=== PATIENT | male | born 1980 | race Caucasian/White ===

== ENCOUNTER → 2016-11-23 | Outpatient (REF) | payer OTHER ==
[~2016-11-23] MED LIST: BENZ5TA PO; COGE1INJ OR; DEPA500T2 PO; HALD100I2 IM; HALO5TA PO; NO HOME MEDS
== END ==
LOC: M SFHCPLAZ 10:56
PROVIDERS: ATTEND Family Medicine
DX: R63.5 Abnormal weight gain (principal)

== ENCOUNTER → 2017-03-15 | Outpatient (REF) | payer OTHER | LOC: M SFHCPLAZ 15:03 | DX: Z13.220 Encounter for screening for lipoid disorders (principal); Z13.1 Encounter for screening for diabetes mellitus; Z13.21 Encounter for screening for nutritional disorder ==

== ENCOUNTER → 2017-04-16 | Outpatient (REF) | payer MEDICAID ==
[2017-04-16 12:20] LABS: ALBUMIN 3.7 GM/DL (3.2-5.2); ALBUMIN/GLOBULIN RATIO 1.12 (1.00-1.93); ALKALINE PHOSPHATASE 71 U/L (45-117); ALT/SGPT 59 U/L (12-78); ANION GAP 10 MEQ/L (8-16); AST/SGOT 22 U/L (15-37); BILIRUBIN,TOTAL 0.5 MG/DL (0.2-1.0); BLOOD UREA NITROGEN 12 MG/DL (7-18); CARBON DIOXIDE LEVEL 25 MEQ/L (21-32); CHLORIDE LEVEL 106 MEQ/L (98-107); CHOLESTEROL LEVEL 229 MG/DL (<200); CREATININE FOR GFR 1.09 MG/DL (0.70-1.30); GLOMERULAR FILTRATION RATE > 60.0 (>60); GLUCOSE, FASTING 97 MG/DL (70-105); SODIUM LEVEL 141 MEQ/L (136-145); TRIGLYCERIDES LEVEL 185 MG/DL (<150)
== END ==
LOC: M SFHCPLAZ 09:39
DX: Z13.220 Encounter for screening for lipoid disorders (principal); Z13.1 Encounter for screening for diabetes mellitus; Z13.21 Encounter for screening for nutritional disorder

== ENCOUNTER → 2017-10-17 | Outpatient (REF) | payer OTHER ==
[~2017-10-17] MED LIST changes: +BENZ0.5T PO; -BENZ5TA PO
[2017-10-17 16:00] LABS: ALBUMIN 3.9 GM/DL (3.2-5.2); ALBUMIN/GLOBULIN RATIO 1.08 (1.00-1.93); ALKALINE PHOSPHATASE 84 U/L (45-117); ALT/SGPT 71 U/L (12-78); ANION GAP 12 MEQ/L (8-16); AST/SGOT 26 U/L (7-37); BILIRUBIN,TOTAL 0.3 MG/DL (0.2-1.0); BLOOD UREA NITROGEN 10 MG/DL (7-18); CALCIUM LEVEL 8.8 MG/DL (8.5-10.1); CARBON DIOXIDE LEVEL 22 MEQ/L (21-32); CHLORIDE LEVEL 109 MEQ/L (98-107); CHOLESTEROL LEVEL 249 MG/DL (<200); CREATININE FOR GFR 1.23 MG/DL (0.70-1.30); GLOMERULAR FILTRATION RATE > 60.0 (>60); GLUCOSE, FASTING 117 MG/DL (70-105); POTASSIUM SERUM 4.3 MEQ/L (3.5-5.1); SODIUM LEVEL 143 MEQ/L (136-145); TOTAL PROTEIN 7.5 GM/DL (6.4-8.2); TRIGLYCERIDES LEVEL 171 MG/DL (<150)
== END ==
LOC: M SFHCPLAZ 09:13
DX: Z13.220 Encounter for screening for lipoid disorders (principal); Z13.1 Encounter for screening for diabetes mellitus; Z13.21 Encounter for screening for nutritional disorder

== ENCOUNTER 2022-06-07 01:34 | Inpatient (IN) | payer MEDICAID, OTHER ==
[~2022-06-07] VITALS: Ht 172.7 cm; Wt 72.9 kg
[~2022-06-07 01:34] MED LIST changes: -BENZ0.5T PO; +BENZ0.5T23 PO; -HALO5TA PO; +HALO5TAB33 PO
[2022-06-07 02:08] LABS: HEMATOCRIT 44.5 % (42.0-52.0); HEMOGLOBIN 15.3 g/dl (13.5-17.5); MEAN CORPUSCULAR HEMOGLOBIN 33.3 pg (27.0-33.0); MEAN CORPUSCULAR HGB CONC 34.4 g/dl (32.0-36.5); MEAN CORPUSCULAR VOLUME 96.7 fl (80.0-96.0); PLATELET COUNT, AUTOMATED 239 10^3/uL (150-450)
[2022-06-07 02:49] LABS: RSV AMPLIFICATION NEGATIVE (NEGATIVE)
[2022-06-07 02:55] LABS: ACETAMINOPHEN LEVEL < 2.0 UG/ML (10.0-30.0); ALBUMIN 3.8 GM/DL (3.2-5.2); ALT/SGPT 48 U/L (12-78); BILIRUBIN,DIRECT < 0.1 MG/DL (0.0-0.2); BILIRUBIN,TOTAL 0.2 MG/DL (0.2-1.0); BLOOD UREA NITROGEN 22 MG/DL (7-18); CALCIUM LEVEL 9.2 MG/DL (8.5-10.1); CARBON DIOXIDE LEVEL 30 MEQ/L (21-32); CHLORIDE LEVEL 103 MEQ/L (98-107); CREATININE FOR GFR 0.99 MG/DL (0.70-1.30); ETHYL ALCOHOL (ETHANOL) < 0.003 % (0.000-0.010); GLOMERULAR FILTRATION RATE > 60.0 (>60); GLUCOSE, FASTING 111 MG/DL (70-100); POTASSIUM SERUM 4.3 MEQ/L (3.5-5.1); SALICYLATE LEVEL < 1.7 MG/DL (5.0-30.0); SODIUM LEVEL 138 MEQ/L (136-145); TOTAL PROTEIN 7.3 GM/DL (6.4-8.2)
[2022-06-07 04:50] LABS: AMPHETAMINES LEVEL URINE NEGATIVE (NEGATIVE); BARBITURATES URINE NEGATIVE (NEGATIVE); BENZODIAZEPINES URINE NEGATIVE (NEGATIVE); CANNABINOIDS URINE NEGATIVE (NEGATIVE); COCAINE METABOLITE URINE NEGATIVE (NEGATIVE); METHADONE URINE NEGATIVE (NEGATIVE); OPIATES URINE NEGATIVE (NEGATIVE); PHENCYCLIDINE URINE NEGATIVE (NEGATIVE)
[2022-06-07] MEDS ORDERED: HOME MED LIST COMPLETE! XX SCH (06:10)
[2022-06-08] MEDS: NICOTINE 21MG/24HR 1 EA TRANSDERMAL TD SCH (09:00)
[2022-06-08] MEDS ORDERED: LORazepam 2 MG TAB PO STA (10:06)
[2022-06-08] MEDS ORDERED: OLANZapine ORAL DISINTEGRATING TAB 5MG PO ONE (10:10)
[2022-06-08] MEDS ORDERED: MAALOX 30 ML SUSP *UDC PO PRN (13:50)
[2022-06-08] MEDS ORDERED: MOM 30ML SUSPENSION UDC PO PRN (13:50)
[2022-06-08 14:46] VITALS: BP 118/78
[2022-06-09 06:36] VITALS: BP 113/73
[2022-06-09] MEDS: NICOTINE 21MG/24HR 1 EA TRANSDERMAL TD SCH (09:00)
[2022-06-09] MEDS ORDERED: diphenhydrAMINE 50MG/ML VIAL (J1200) IM STA (09:15)
[2022-06-09] MEDS ORDERED: LORazepam 2 MG/ML VIAL IM STA (09:15)
[2022-06-09] MEDS ORDERED: HALOPERIDOL 5MG/ML VIAL (J1630 PER 1) IM STA (09:15)
[2022-06-09 17:04] VITALS: BP 147/71
[2022-06-09] MEDS: PALIPERIDONE 3 MG ER TAB (INVEGA) PO SCH (21:00)
[2022-06-10] VITALS (7 sets, daily range): BP systolic 115–135; BP diastolic 71–82
[2022-06-10] MEDS: NICOTINE 21MG/24HR 1 EA TRANSDERMAL TD SCH (09:00)
[2022-06-10] MEDS ORDERED: diphenhydrAMINE 50MG/ML VIAL (J1200) IM STA (11:20)
[2022-06-10] MEDS ORDERED: HALOPERIDOL 5MG/ML VIAL (J1630 PER 1) IM STA (11:20)
[2022-06-10] MEDS ORDERED: LORazepam 2 MG/ML VIAL IM STA (11:20)
[2022-06-10] MEDS: PALIPERIDONE 3 MG ER TAB (INVEGA) PO SCH (20:58)
[2022-06-11 06:36] VITALS: BP 127/71
[2022-06-11] MEDS: NICOTINE 21MG/24HR 1 EA TRANSDERMAL TD SCH (09:00)
[2022-06-11 18:26] VITALS: BP 124/83
[2022-06-11] MEDS: PALIPERIDONE 3 MG ER TAB (INVEGA) PO SCH (20:07)
[2022-06-12] MEDS: diphenhydrAMINE 25MG CAP PO PRN (00:51)
[2022-06-12] MEDS: LORazepam 1 MG TAB PO PRN (00:51)
[2022-06-12] MEDS: NICOTINE 21MG/24HR 1 EA TRANSDERMAL TD SCH (09:00)
[2022-06-12 18:19] VITALS: BP 138/78
[2022-06-12] MEDS: PALIPERIDONE 3 MG ER TAB (INVEGA) PO SCH (20:50)
[2022-06-13] MEDS: NICOTINE 21MG/24HR 1 EA TRANSDERMAL TD SCH (08:55)
[2022-06-13 18:33] VITALS: BP 122/74
[2022-06-13] MEDS: PALIPERIDONE 3 MG ER TAB (INVEGA) PO SCH (21:00)
[2022-06-14 07:09] VITALS: BP 111/66
[2022-06-14] MEDS: NICOTINE 21MG/24HR 1 EA TRANSDERMAL TD SCH (09:00)
[2022-06-14 18:00] VITALS: BP 136/90
[2022-06-14] MEDS: PALIPERIDONE 3 MG ER TAB (INVEGA) PO SCH (21:00)
[2022-06-15] MEDS: NICOTINE 21MG/24HR 1 EA TRANSDERMAL TD SCH (09:00)
[2022-06-15 18:20] VITALS: BP 137/74
[2022-06-15] MEDS: PALIPERIDONE 3 MG ER TAB (INVEGA) PO SCH (21:00)
[2022-06-16 07:02] VITALS: BP 133/76
[2022-06-16] MEDS: NICOTINE 21MG/24HR 1 EA TRANSDERMAL TD SCH (08:26)
[2022-06-16] MEDS: LORazepam 1 MG TAB PO PRN (14:25)
[2022-06-16] MEDS: diphenhydrAMINE 25MG CAP PO PRN (14:25)
[2022-06-16 18:26] VITALS: BP 145/93
[2022-06-16] MEDS: PALIPERIDONE 3 MG ER TAB (INVEGA) PO SCH (20:45)
[2022-06-17 06:57] VITALS: BP 130/71
[2022-06-17] MEDS: NICOTINE 21MG/24HR 1 EA TRANSDERMAL TD SCH (07:31)
[2022-06-17 18:19] VITALS: BP 150/86
[2022-06-17] MEDS: PALIPERIDONE 3 MG ER TAB (INVEGA) PO SCH (20:49)
[2022-06-18 06:33] VITALS: BP 138/79
[2022-06-18] MEDS: NICOTINE 21MG/24HR 1 EA TRANSDERMAL TD SCH (09:00)
[2022-06-18] MEDS: PALIPERIDONE 3 MG ER TAB (INVEGA) PO SCH (20:49)
[2022-06-19 06:23] VITALS: BP 112/78
[2022-06-19] MEDS: NICOTINE 21MG/24HR 1 EA TRANSDERMAL TD SCH (09:00)
[2022-06-19 16:54] VITALS: BP 153/77
[2022-06-19] MEDS: PALIPERIDONE 3 MG ER TAB (INVEGA) PO SCH (21:00)
[2022-06-20 06:29] VITALS: BP 104/58
[2022-06-20] MEDS ORDERED: NICOTINE 21MG/24HR 1 EA TRANSDERMAL TD PRN (09:00)
[2022-06-20] MEDS: NICOTINE 21MG/24HR 1 EA TRANSDERMAL TD SCH (09:00)
[2022-06-20] MEDS: diphenhydrAMINE 25MG CAP PO PRN (14:53)
[2022-06-20] MEDS: LORazepam 1 MG TAB PO PRN (14:53)
[2022-06-20 16:52] VITALS: BP 125/73
[2022-06-20] MEDS: PALIPERIDONE 3 MG ER TAB (INVEGA) PO SCH ×3 (20:33→21:45)
[2022-06-21 06:52] VITALS: BP 126/76
[2022-06-21] MEDS: PALIPERIDONE 3 MG ER TAB (INVEGA) PO SCH ×2 (08:33→20:14)
[2022-06-21] MEDS: DIVALPROEX 250 MG TAB PO SCH ×2 (08:34→20:14)
[2022-06-21 18:39] VITALS: BP 108/70
[2022-06-22 07:01] VITALS: BP 129/82
[2022-06-22] MEDS: DIVALPROEX 250 MG TAB PO SCH ×3 (09:00→19:56)
[2022-06-22] MEDS: PALIPERIDONE 3 MG ER TAB (INVEGA) PO SCH ×3 (09:00→19:56)
[2022-06-22 16:18] VITALS: BP 128/69
[2022-06-23 06:31] VITALS: BP 130/78
[2022-06-23] MEDS: DIVALPROEX 250 MG TAB PO SCH ×2 (08:42→19:59)
[2022-06-23] MEDS: PALIPERIDONE 3 MG ER TAB (INVEGA) PO SCH ×2 (08:42→19:58)
[2022-06-23 16:47] VITALS: BP 114/60
[2022-06-24 06:22] VITALS: BP 117/82
[2022-06-24] MEDS: DIVALPROEX 250 MG TAB PO SCH ×2 (08:53→20:14)
[2022-06-24] MEDS: PALIPERIDONE 3 MG ER TAB (INVEGA) PO SCH ×2 (08:53→20:14)
[2022-06-24 17:16] VITALS: BP 138/81
[2022-06-25 06:30] VITALS: BP 120/75
[2022-06-25] MEDS: DIVALPROEX 250 MG TAB PO SCH ×2 (08:26→20:28)
[2022-06-25] MEDS: PALIPERIDONE 3 MG ER TAB (INVEGA) PO SCH ×2 (08:26→20:27)
[2022-06-25] MEDS: IBUPROFEN 400MG TAB PO PRN (17:27)
[2022-06-25 18:42] VITALS: BP 113/77
[2022-06-26 06:43] VITALS: BP 113/73
[2022-06-26] MEDS: PALIPERIDONE 3 MG ER TAB (INVEGA) PO SCH ×2 (08:11→20:15)
[2022-06-26] MEDS: DIVALPROEX 250 MG TAB PO SCH (08:11)
[2022-06-26 18:27] VITALS: BP 122/72
[2022-06-26] MEDS ORDERED: DIVALPROEX 500 MG TAB PO SCH (21:00)
[2022-06-27 06:44] VITALS: BP 121/71
[2022-06-27] MEDS: PALIPERIDONE 3 MG ER TAB (INVEGA) PO SCH ×2 (08:38→20:25)
[2022-06-27] MEDS ORDERED: DIVALPROEX 250 MG TAB PO SCH (09:00)
[2022-06-27 18:00] VITALS: BP 109/56
[2022-06-27] MEDS: IBUPROFEN 400MG TAB PO PRN (20:24)
[2022-06-27] MEDS: DIVALPROEX 500 MG TAB PO SCH (20:25)
[2022-06-27] MEDS: traZODone 50 MG TAB PO PRN (20:25)
[2022-06-28] MEDS: IBUPROFEN 400MG TAB PO PRN ×2 (04:38→16:14)
[2022-06-28 06:52] VITALS: BP 127/67
[2022-06-28] MEDS: PALIPERIDONE 3 MG ER TAB (INVEGA) PO SCH ×2 (08:25→20:11)
[2022-06-28] MEDS: DIVALPROEX 500 MG TAB PO SCH ×2 (08:25→20:11)
[2022-06-28 18:39] VITALS: BP 119/59
[2022-06-28] MEDS: traZODone 50 MG TAB PO PRN (20:11)
[2022-06-29] MEDS: IBUPROFEN 400MG TAB PO PRN ×2 (00:48→19:28)
[2022-06-29 06:30] VITALS: BP 111/66
[2022-06-29] MEDS: DIVALPROEX 500 MG TAB PO SCH ×2 (08:17→21:28)
[2022-06-29] MEDS: PALIPERIDONE 3 MG ER TAB (INVEGA) PO SCH ×2 (08:17→21:27)
[2022-06-29 19:14] VITALS: BP 140/74
[2022-06-29] MEDS: traZODone 50 MG TAB PO PRN (21:27)
[2022-06-30] MEDS: IBUPROFEN 400MG TAB PO PRN ×3 (05:00→22:47)
[2022-06-30 06:41] VITALS: BP 107/58
[2022-06-30] MEDS: PALIPERIDONE 3 MG ER TAB (INVEGA) PO SCH ×2 (08:28→20:15)
[2022-06-30] MEDS: DIVALPROEX 500 MG TAB PO SCH ×2 (08:28→20:16)
[2022-06-30] MEDS: traZODone 50 MG TAB PO PRN (20:15)
[2022-07-01] MEDS: IBUPROFEN 400MG TAB PO PRN ×2 (05:06→14:47)
[2022-07-01 06:29] VITALS: BP 117/56
[2022-07-01] MEDS: PALIPERIDONE 3 MG ER TAB (INVEGA) PO SCH ×2 (08:04→20:33)
[2022-07-01] MEDS: DIVALPROEX 500 MG TAB PO SCH ×2 (08:04→20:33)
[2022-07-01 20:00] VITALS: BP 148/67
[2022-07-01] MEDS: traZODone 50 MG TAB PO PRN (20:33)
[2022-07-02] MEDS: IBUPROFEN 400MG TAB PO PRN ×3 (06:20→23:10)
[2022-07-02 06:30] VITALS: BP 132/70
[2022-07-02] MEDS: DIVALPROEX 500 MG TAB PO SCH ×2 (08:38→20:09)
[2022-07-02] MEDS: PALIPERIDONE 3 MG ER TAB (INVEGA) PO SCH ×2 (08:38→20:09)
[2022-07-02 17:02] VITALS: BP 121/61
[2022-07-02] MEDS: traZODone 50 MG TAB PO PRN (20:09)
[2022-07-03 06:14] VITALS: BP 114/70
[2022-07-03] MEDS: DIVALPROEX 500 MG TAB PO SCH ×2 (08:28→21:10)
[2022-07-03] MEDS: PALIPERIDONE 3 MG ER TAB (INVEGA) PO SCH ×2 (08:28→21:10)
[2022-07-03] MEDS: IBUPROFEN 400MG TAB PO PRN (09:15)
[2022-07-03 17:06] VITALS: BP 120/69
[2022-07-04 07:40] VITALS: BP 129/77
[2022-07-04] MEDS: PALIPERIDONE 6 MG ER TAB (INVEGA) PO SCH (08:28)
[2022-07-04] MEDS: DIVALPROEX 500 MG TAB PO SCH ×2 (08:29→20:14)
[2022-07-04 16:44] VITALS: BP 113/58
[2022-07-04] MEDS: traZODone 50 MG TAB PO PRN (20:14)
[2022-07-04] MEDS: PALIPERIDONE 3 MG ER TAB (INVEGA) PO SCH (20:14)
[2022-07-05 07:14] VITALS: BP 116/71
[2022-07-05] MEDS: DIVALPROEX 500 MG TAB PO SCH ×2 (08:44→20:40)
[2022-07-05] MEDS: PALIPERIDONE 6 MG ER TAB (INVEGA) PO SCH (08:44)
[2022-07-05 18:32] VITALS: BP 119/67
[2022-07-05] MEDS: PALIPERIDONE 3 MG ER TAB (INVEGA) PO SCH (20:40)
[2022-07-06 06:39] VITALS: BP 123/69
[2022-07-06] MEDS: DIVALPROEX 500 MG TAB PO SCH ×2 (08:24→20:20)
[2022-07-06] MEDS: PALIPERIDONE 6 MG ER TAB (INVEGA) PO SCH (09:00)
[2022-07-06 16:34] VITALS: BP 112/65
[2022-07-06] MEDS: PALIPERIDONE 3 MG ER TAB (INVEGA) PO SCH (20:20)
[2022-07-06] MEDS: traZODone 50 MG TAB PO PRN (20:20)
[2022-07-07] MEDS: DIVALPROEX 500 MG TAB PO SCH ×2 (08:34→20:14)
[2022-07-07] MEDS: PALIPERIDONE 6 MG ER TAB (INVEGA) PO SCH (08:34)
[2022-07-07 16:22] VITALS: BP 111/60
[2022-07-07] MEDS: traZODone 50 MG TAB PO PRN (20:13)
[2022-07-07] MEDS: PALIPERIDONE 3 MG ER TAB (INVEGA) PO SCH (20:13)
[2022-07-08] MEDS: PALIPERIDONE 6 MG ER TAB (INVEGA) PO SCH (08:23)
[2022-07-08] MEDS: DIVALPROEX 500 MG TAB PO SCH ×2 (08:23→20:58)
[2022-07-08 16:24] VITALS: BP 126/69
[2022-07-08] MEDS: traZODone 50 MG TAB PO PRN (20:58)
[2022-07-08] MEDS: PALIPERIDONE 3 MG ER TAB (INVEGA) PO SCH (20:58)
[2022-07-09 06:11] VITALS: BP 105/56
[2022-07-09] MEDS: PALIPERIDONE 6 MG ER TAB (INVEGA) PO SCH (08:49)
[2022-07-09] MEDS: DIVALPROEX 500 MG TAB PO SCH ×2 (08:49→20:50)
[2022-07-09 18:28] VITALS: BP 134/66
[2022-07-09] MEDS: PALIPERIDONE 3 MG ER TAB (INVEGA) PO SCH (20:50)
[2022-07-10 06:20] VITALS: BP 96/76
[2022-07-10] MEDS: DIVALPROEX 500 MG TAB PO SCH ×2 (08:17→20:19)
[2022-07-10] MEDS: PALIPERIDONE 6 MG ER TAB (INVEGA) PO SCH (08:17)
[2022-07-10 17:54] VITALS: BP 125/76
[2022-07-10] MEDS: PALIPERIDONE 3 MG ER TAB (INVEGA) PO SCH (20:20)
[2022-07-10] MEDS: traZODone 50 MG TAB PO PRN (20:20)
[2022-07-11 06:16] VITALS: BP 118/65
[2022-07-11] MEDS: PALIPERIDONE 6 MG ER TAB (INVEGA) PO SCH (09:00)
[2022-07-11] MEDS: DIVALPROEX 500 MG TAB PO SCH ×2 (10:06→20:12)
[2022-07-11 19:27] VITALS: BP 127/61
[2022-07-11] MEDS: PALIPERIDONE 3 MG ER TAB (INVEGA) PO SCH (20:11)
[2022-07-11] MEDS: traZODone 50 MG TAB PO PRN (20:11)
[2022-07-12 06:44] VITALS: BP 110/61
[2022-07-12] MEDS: PALIPERIDONE 6 MG ER TAB (INVEGA) PO SCH ×2 (08:16→08:37)
[2022-07-12] MEDS: DIVALPROEX 500 MG TAB PO SCH ×2 (08:17→20:29)
[2022-07-12 18:06] VITALS: BP 125/63
[2022-07-12] MEDS: PALIPERIDONE 3 MG ER TAB (INVEGA) PO SCH (20:29)
[2022-07-12] MEDS: traZODone 50 MG TAB PO PRN (20:29)
[2022-07-13] MEDS: DIVALPROEX 500 MG TAB PO SCH ×2 (08:48→20:07)
[2022-07-13] MEDS: PALIPERIDONE 6 MG ER TAB (INVEGA) PO SCH (09:00)
[2022-07-13 16:30] VITALS: BP 134/62
[2022-07-13] MEDS: traZODone 50 MG TAB PO PRN (20:07)
[2022-07-13] MEDS: PALIPERIDONE 3 MG ER TAB (INVEGA) PO SCH (20:07)
[2022-07-14 07:11] VITALS: BP 111/65
[2022-07-14] MEDS: DIVALPROEX 500 MG TAB PO SCH ×2 (08:32→20:24)
[2022-07-14] MEDS: PALIPERIDONE 3 MG ER TAB (INVEGA) PO SCH ×2 (08:33→20:24)
[2022-07-14 18:30] VITALS: BP 123/58
[2022-07-14] MEDS: traZODone 50 MG TAB PO PRN (20:23)
[2022-07-15 06:34] VITALS: BP 123/70
[2022-07-15] MEDS: PALIPERIDONE 3 MG ER TAB (INVEGA) PO SCH ×2 (08:02→20:56)
[2022-07-15] MEDS: DIVALPROEX 500 MG TAB PO SCH ×2 (08:03→20:56)
[2022-07-15 17:52] VITALS: BP 108/58
[2022-07-16 08:20] VITALS: BP 118/68
[2022-07-16 08:40] VITALS: BP 118/68
[2022-07-16] MEDS: DIVALPROEX 500 MG TAB PO SCH ×2 (08:58→20:20)
[2022-07-16] MEDS: PALIPERIDONE 3 MG ER TAB (INVEGA) PO SCH ×2 (08:58→20:20)
[2022-07-16 16:00] VITALS: BP 113/68
[2022-07-16] MEDS: traZODone 50 MG TAB PO PRN (20:20)
[2022-07-17 06:30] VITALS: BP 111/59
[2022-07-17] MEDS: DIVALPROEX 500 MG TAB PO SCH ×2 (08:21→20:10)
[2022-07-17] MEDS: PALIPERIDONE 3 MG ER TAB (INVEGA) PO SCH ×2 (08:21→20:10)
[2022-07-17 16:22] VITALS: BP 135/73
[2022-07-17] MEDS: traZODone 50 MG TAB PO PRN (20:10)
[2022-07-18 06:37] VITALS: BP 131/74
[2022-07-18] MEDS: DIVALPROEX 500 MG TAB PO SCH ×2 (08:05→20:18)
[2022-07-18] MEDS: PALIPERIDONE 3 MG ER TAB (INVEGA) PO SCH ×2 (08:05→20:17)
[2022-07-18 15:44] VITALS: BP 127/65
[2022-07-18] MEDS: traZODone 50 MG TAB PO PRN (20:17)
[2022-07-19 06:22] VITALS: BP 117/76
[2022-07-19] MEDS: PALIPERIDONE 3 MG ER TAB (INVEGA) PO SCH ×2 (08:10→20:23)
[2022-07-19] MEDS: DIVALPROEX 500 MG TAB PO SCH (08:11)
[2022-07-19 18:22] VITALS: BP 116/66
[2022-07-19] MEDS: traZODone 50 MG TAB PO PRN (20:20)
[2022-07-19] MEDS: DIVALPROEX 250 MG TAB PO SCH (20:21)
[2022-07-20 06:47] VITALS: BP 123/66
[2022-07-20] MEDS: DIVALPROEX 500 MG TAB PO SCH (08:26)
[2022-07-20] MEDS: PALIPERIDONE 3 MG ER TAB (INVEGA) PO SCH ×2 (08:26→20:03)
[2022-07-20 16:12] VITALS: BP 114/57
[2022-07-20] MEDS: traZODone 50 MG TAB PO PRN (20:03)
[2022-07-20] MEDS: DIVALPROEX 250 MG TAB PO SCH (20:03)
[2022-07-21 06:12] VITALS: BP 113/58
[2022-07-21] MEDS: DIVALPROEX 500 MG TAB PO SCH (08:23)
[2022-07-21] MEDS: PALIPERIDONE 3 MG ER TAB (INVEGA) PO SCH ×2 (08:24→20:11)
[2022-07-21 16:05] VITALS: BP 108/56
[2022-07-21] MEDS: DIVALPROEX 250 MG TAB PO SCH (20:11)
[2022-07-22 06:39] VITALS: BP 109/65
[2022-07-22] MEDS: DIVALPROEX 500 MG TAB PO SCH (08:09)
[2022-07-22] MEDS: PALIPERIDONE 3 MG ER TAB (INVEGA) PO SCH ×2 (08:09→20:32)
[2022-07-22 08:21] LABS: CHOLESTEROL RISK RATIO 4.063 (<5)
[2022-07-22 16:10] VITALS: BP 126/66
[2022-07-22] MEDS: DIVALPROEX 250 MG TAB PO SCH (20:32)
[2022-07-22] MEDS: traZODone 50 MG TAB PO PRN (20:32)
[2022-07-23 06:14] VITALS: BP 124/63
[2022-07-23] MEDS: PALIPERIDONE 3 MG ER TAB (INVEGA) PO SCH ×2 (08:25→20:39)
[2022-07-23] MEDS: DIVALPROEX 500 MG TAB PO SCH (08:25)
[2022-07-23 17:26] VITALS: BP 106/59
[2022-07-23] MEDS: DIVALPROEX 250 MG TAB PO SCH (20:39)
[2022-07-23] MEDS: traZODone 50 MG TAB PO PRN (20:39)
[2022-07-24 06:51] VITALS: BP 106/69
[2022-07-24] MEDS: PALIPERIDONE 3 MG ER TAB (INVEGA) PO SCH (08:08)
[2022-07-24] MEDS: DIVALPROEX 500 MG TAB PO SCH (08:10)
[2022-07-24] MEDS ORDERED: DEPA250T32 PO (08:37)
[2022-07-24] MEDS ORDERED: PALI1TAB2 PO ×2 (08:37)
[2022-07-24] MEDS ORDERED: TRAZ-252 PO (08:37)
[2022-07-24] MEDS ORDERED: DEPA1TAB3 PO (08:37)
== END 2022-07-24 12:40 | disposition home or self-care (01) | DRG 753 ==
LOC: M ED 01:34 → M ED INP 06-08 13:50 → M PSY 06-08 14:41
PROVIDERS: ADMIT Student in an Organized Health Care Education/Training Program; ATTEND Psychiatry & Neurology Psychiatry
DX: F31.2 Bipolar disorder, current episode manic severe with psychotic features (principal); Z78.1 Physical restraint status; F12.90 Cannabis use, unspecified, uncomplicated

== ENCOUNTER 2022-11-18 09:49 | Inpatient (IN) | payer MEDICAID ==
[~2022-11-18] VITALS: Ht 177.8 cm; Wt 76.0 kg
[~2022-11-18 09:49] MED LIST changes: +DEPA1TAB3 PO; +DEPA250T32 PO; +PALI1TAB2 PO; +TRAZ-252 PO
[2022-11-18] MEDS ORDERED: LORazepam 2 MG/ML VIAL IM STA ×2 (10:50→13:03)
[2022-11-18] MEDS ORDERED: LIDOCAINE 2% 5ML JELLY UROJET TOP ONE (10:50)
[2022-11-18] MEDS ORDERED: OLANZapine INTRAMUSCULAR 10MG VIAL IM ONE ×2 (10:50→13:05)
[2022-11-18 12:13] LABS: HEMATOCRIT 44.5 % (42.0-52.0); MEAN CORPUSCULAR HEMOGLOBIN 31.4 pg (27.0-33.0); MEAN CORPUSCULAR HGB CONC 33.7 g/dl (32.0-36.5); MEAN CORPUSCULAR VOLUME 93.1 fl (80.0-96.0); PLATELET COUNT, AUTOMATED 240 10^3/uL (150-450); RED BLOOD COUNT 4.78 10^6/uL (4.30-6.10); WHITE BLOOD COUNT 5.6 10^3/uL (4.0-10.0)
[2022-11-18] MEDS ORDERED: PALI1TAB2 PO (12:27)
[2022-11-18] MEDS ORDERED: TRAZ-186 PO (12:27)
[2022-11-18] MEDS ORDERED: PALI1TAB4 PO (12:27)
[2022-11-18] MEDS ORDERED: DEPA1TAB3 PO (12:27)
[2022-11-18] MEDS ORDERED: DEPA250T32 PO (12:27)
[2022-11-18] MEDS ORDERED: COMMENTS (12:28)
[2022-11-18] MEDS ORDERED: HOME MED LIST COMPLETE! XX SCH (12:35)
[2022-11-18 12:37] LABS: ETHYL ALCOHOL (ETHANOL) 0.003 % (0.000-0.010)
[2022-11-18 12:38] LABS: ACETAMINOPHEN LEVEL < 2.0 UG/ML (10.0-20.0); BILIRUBIN,DIRECT < 0.1 MG/DL (<0.4); SALICYLATE LEVEL < 3.0 MG/DL (<30)
[2022-11-18 12:39] LABS: ALBUMIN 3.5 G/DL (3.2-5.2); ALKALINE PHOSPHATASE 65 U/L (46-116); ALT/SGPT 31 U/L (7.0-40); AST/SGOT 23 U/L (<34); BILIRUBIN,TOTAL 0.2 MG/DL (0.3-1.2); BLOOD UREA NITROGEN 16 MG/DL (9-23); CALCIUM LEVEL 8.4 MG/DL (8.5-10.1); CARBON DIOXIDE LEVEL 25 MMOL/L (20-31); CHLORIDE LEVEL 108 MMOL/L (98-107); CREATININE FOR GFR 0.91 MG/DL (0.70-1.30); GLOMERULAR FILTRATION RATE > 60.0 (>60); GLUCOSE, FASTING 95 MG/DL (60-100); POTASSIUM SERUM 4.1 MMOL/L (3.5-5.1); SODIUM LEVEL 142 MMOL/L (136-145); TOTAL PROTEIN 6.2 G/DL (5.7-8.2)
[2022-11-18 12:41] LABS: THYROID STIMULATING HORMONE 0.436 uIU/ML (0.55-4.78)
[2022-11-18 12:47] LABS: RSV AMPLIFICATION NEGATIVE (NEGATIVE)
[2022-11-18 16:09] LABS: AMPHETAMINES LEVEL URINE NEGATIVE (NEGATIVE); BARBITURATES URINE NEGATIVE (NEGATIVE); BENZODIAZEPINES URINE NEGATIVE (NEGATIVE)
[2022-11-18 16:10] LABS: CANNABINOIDS URINE NEGATIVE (NEGATIVE); COCAINE METABOLITE URINE NEGATIVE (NEGATIVE); METHADONE URINE NEGATIVE (NEGATIVE); OPIATES URINE NEGATIVE (NEGATIVE); PHENCYCLIDINE URINE NEGATIVE (NEGATIVE)
[2022-11-19 08:49] LABS: VALPROIC ACID (DEPAKOTE) < 3.0 UG/ML (50.0-100.0)
[2022-11-19] MEDS: PALIPERIDONE 3MG ER TAB (INVEGA) PO SCH (09:00)
[2022-11-19] MEDS: DIVALPROEX 500 MG TAB PO SCH (10:53)
[2022-11-19] MEDS: traZODone 50 MG TAB PO SCH (20:49)
[2022-11-19] MEDS: DIVALPROEX 250MG TAB PO SCH (20:50)
[2022-11-20] MEDS: PALIPERIDONE 3MG ER TAB (INVEGA) PO SCH (08:59)
[2022-11-20] MEDS: DIVALPROEX 500 MG TAB PO SCH (08:59)
[2022-11-20] MEDS: traZODone 50 MG TAB PO SCH (21:27)
[2022-11-20] MEDS: DIVALPROEX 250MG TAB PO SCH (21:27)
[2022-11-21] MEDS: NICOTINE 21MG/24HR 1 EA TRANSDERMAL TD SCH (09:00)
[2022-11-21] MEDS: PALIPERIDONE 3MG ER TAB (INVEGA) PO SCH ×2 (10:36→21:42)
[2022-11-21] MEDS: DIVALPROEX 500 MG TAB PO SCH (10:36)
[2022-11-21] MEDS ORDERED: MAALOX 30 ML SUSP *UDC PO PRN (12:30)
[2022-11-21] MEDS ORDERED: diphenhydrAMINE 25MG CAP PO PRN (12:30)
[2022-11-21] MEDS ORDERED: IBUPROFEN 400MG TAB PO PRN (12:30)
[2022-11-21] MEDS ORDERED: traZODone 50 MG TAB PO PRN (12:30)
[2022-11-21] MEDS ORDERED: MOM 30ML SUSPENSION UDC PO PRN (12:30)
[2022-11-21] MEDS ORDERED: OLANZapine ORAL DISINTEGRATING TAB 5MG PO PRN (12:30)
[2022-11-21 21:35] VITALS: BP 126/76
[2022-11-21] MEDS: DIVALPROEX 250MG TAB PO SCH (21:42)
[2022-11-21] MEDS: traZODone 50 MG TAB PO SCH (21:42)
[2022-11-22 06:38] VITALS: BP 116/63
[2022-11-22] MEDS: DIVALPROEX 500 MG TAB PO SCH (08:56)
[2022-11-22] MEDS: NICOTINE 21MG/24HR 1 EA TRANSDERMAL TD SCH (08:56)
[2022-11-22] MEDS ORDERED: PALIPERIDONE 3MG ER TAB (INVEGA) PO SCH (09:00)
[2022-11-22 18:21] VITALS: BP 144/66
[2022-11-22] MEDS: PALIPERIDONE 3MG ER TAB (INVEGA) PO SCH (21:11)
[2022-11-22] MEDS: DIVALPROEX 250MG TAB PO SCH (21:11)
[2022-11-22] MEDS: traZODone 50 MG TAB PO SCH (21:11)
[2022-11-23 06:04] VITALS: BP 123/64
[2022-11-23] MEDS: NICOTINE 21MG/24HR 1 EA TRANSDERMAL TD SCH (08:50)
[2022-11-23] MEDS: DIVALPROEX 500 MG TAB PO SCH (08:51)
[2022-11-23 16:33] VITALS: BP 126/67
[2022-11-23] MEDS: DIVALPROEX 250MG TAB PO SCH (21:04)
[2022-11-23] MEDS: PALIPERIDONE 3MG ER TAB (INVEGA) PO SCH (21:04)
[2022-11-23] MEDS: traZODone 50 MG TAB PO SCH (21:05)
[2022-11-24 06:52] VITALS: BP 131/76
[2022-11-24] MEDS: DIVALPROEX 500 MG TAB PO SCH (08:15)
[2022-11-24] MEDS: NICOTINE 21MG/24HR 1 EA TRANSDERMAL TD SCH (08:15)
[2022-11-24 16:43] VITALS: BP 132/70
[2022-11-24] MEDS: PALIPERIDONE 3MG ER TAB (INVEGA) PO SCH (20:03)
[2022-11-24] MEDS: DIVALPROEX 250MG TAB PO SCH (20:03)
[2022-11-24] MEDS: traZODone 50 MG TAB PO SCH (20:04)
[2022-11-25 06:53] VITALS: BP 100/60
[2022-11-25] MEDS: DIVALPROEX 500 MG TAB PO SCH (08:10)
[2022-11-25] MEDS: NICOTINE 21MG/24HR 1 EA TRANSDERMAL TD SCH (08:11)
[2022-11-25 16:33] VITALS: BP 126/61
[2022-11-25] MEDS: DIVALPROEX 250MG TAB PO SCH (20:25)
[2022-11-25] MEDS: PALIPERIDONE 3MG ER TAB (INVEGA) PO SCH (20:25)
[2022-11-25] MEDS: traZODone 50 MG TAB PO SCH (20:25)
[2022-11-26 06:00] VITALS: BP 112/55
[2022-11-26] MEDS: DIVALPROEX 500 MG TAB PO SCH (08:08)
[2022-11-26] MEDS: NICOTINE 21MG/24HR 1 EA TRANSDERMAL TD SCH (08:09)
[2022-11-26 19:27] VITALS: BP 147/75
[2022-11-26] MEDS: PALIPERIDONE 3MG ER TAB (INVEGA) PO SCH (20:20)
[2022-11-26] MEDS: traZODone 50 MG TAB PO SCH (20:20)
[2022-11-26] MEDS: DIVALPROEX 250MG TAB PO SCH (20:21)
[2022-11-27 06:04] VITALS: BP 137/57
[2022-11-27] MEDS: NICOTINE 21MG/24HR 1 EA TRANSDERMAL TD SCH (08:12)
[2022-11-27] MEDS: DIVALPROEX 500 MG TAB PO SCH (08:13)
[2022-11-27 18:42] VITALS: BP 138/89
[2022-11-27] MEDS: traZODone 50 MG TAB PO SCH (20:21)
[2022-11-27] MEDS: DIVALPROEX 250MG TAB PO SCH (20:21)
[2022-11-27] MEDS: PALIPERIDONE 3MG ER TAB (INVEGA) PO SCH (20:22)
[2022-11-28 06:48] VITALS: BP 140/65
[2022-11-28] MEDS: NICOTINE 21MG/24HR 1 EA TRANSDERMAL TD SCH (08:16)
[2022-11-28] MEDS: DIVALPROEX 250MG TAB PO SCH ×2 (08:19→20:36)
[2022-11-28 19:10] VITALS: BP 126/79
[2022-11-28] MEDS: traZODone 50 MG TAB PO SCH (20:36)
[2022-11-28] MEDS: PALIPERIDONE 3MG ER TAB (INVEGA) PO SCH (20:36)
[2022-11-29 06:48] VITALS: BP 122/60
[2022-11-29] MEDS: NICOTINE 21MG/24HR 1 EA TRANSDERMAL TD SCH (08:04)
[2022-11-29] MEDS: DIVALPROEX 250MG TAB PO SCH ×2 (08:05→20:23)
[2022-11-29 19:12] VITALS: BP 135/81
[2022-11-29] MEDS: traZODone 50 MG TAB PO SCH (20:22)
[2022-11-29] MEDS: PALIPERIDONE 3MG ER TAB (INVEGA) PO SCH (20:22)
[2022-11-30 06:58] VITALS: BP 120/69
[2022-11-30] MEDS: DIVALPROEX 250MG TAB PO SCH ×2 (07:58→20:07)
[2022-11-30] MEDS: NICOTINE 21MG/24HR 1 EA TRANSDERMAL TD SCH (08:00)
[2022-11-30 17:32] VITALS: BP 122/67
[2022-11-30] MEDS: traZODone 50 MG TAB PO SCH (20:06)
[2022-11-30] MEDS: PALIPERIDONE 3MG ER TAB (INVEGA) PO SCH (20:07)
[2022-12-01 06:36] VITALS: BP 128/62
[2022-12-01] MEDS: NICOTINE 21MG/24HR 1 EA TRANSDERMAL TD SCH (08:00)
[2022-12-01] MEDS: DIVALPROEX 250MG TAB PO SCH ×2 (08:02→20:18)
[2022-12-01 17:31] VITALS: BP 164/77
[2022-12-01 20:00] VITALS: BP 152/78
[2022-12-01] MEDS: traZODone 50 MG TAB PO SCH (20:18)
[2022-12-01] MEDS: PALIPERIDONE 3MG ER TAB (INVEGA) PO SCH (20:18)
[2022-12-02 06:38] VITALS: BP 133/64
[2022-12-02] MEDS: DIVALPROEX 250MG TAB PO SCH ×2 (08:15→20:12)
[2022-12-02] MEDS: NICOTINE 21MG/24HR 1 EA TRANSDERMAL TD SCH (08:16)
[2022-12-02] MEDS: PALIPERIDONE 3MG ER TAB (INVEGA) PO SCH (20:11)
[2022-12-02] MEDS: traZODone 50 MG TAB PO SCH (20:12)
[2022-12-02 20:35] VITALS: BP 139/61
[2022-12-03 05:59] VITALS: BP 127/76
[2022-12-03] MEDS: DIVALPROEX 250MG TAB PO SCH ×2 (08:13→20:09)
[2022-12-03] MEDS: NICOTINE 21MG/24HR 1 EA TRANSDERMAL TD SCH (08:14)
[2022-12-03] MEDS ORDERED: NICOTINE 21MG/24HR 1 EA TRANSDERMAL TD PRN (08:50)
[2022-12-03] MEDS: PALIPERIDONE 3MG ER TAB (INVEGA) PO SCH ×2 (09:00→20:09)
[2022-12-03] MEDS: traZODone 50 MG TAB PO SCH (20:09)
[2022-12-04 06:41] VITALS: BP 142/79
[2022-12-04] MEDS: DIVALPROEX 250MG TAB PO SCH ×2 (08:49→20:03)
[2022-12-04] MEDS: PALIPERIDONE 3MG ER TAB (INVEGA) PO SCH ×2 (08:50→20:04)
[2022-12-04 16:49] VITALS: BP 119/84
[2022-12-04] MEDS: traZODone 50 MG TAB PO SCH (20:03)
[2022-12-05 06:32] VITALS: BP 119/71
[2022-12-05] MEDS: DIVALPROEX 250MG TAB PO SCH ×2 (08:03→20:25)
[2022-12-05] MEDS: PALIPERIDONE 3MG ER TAB (INVEGA) PO SCH ×2 (08:42→20:25)
[2022-12-05 16:19] VITALS: BP 105/60
[2022-12-05] MEDS: traZODone 50 MG TAB PO SCH (20:25)
[2022-12-06 06:59] VITALS: BP 103/73
[2022-12-06] MEDS: DIVALPROEX 250MG TAB PO SCH ×2 (07:59→20:13)
[2022-12-06] MEDS: PALIPERIDONE 3MG ER TAB (INVEGA) PO SCH ×2 (09:00→20:13)
[2022-12-06 18:21] VITALS: BP 134/65
[2022-12-06] MEDS: traZODone 50 MG TAB PO SCH (20:13)
[2022-12-07 06:08] VITALS: BP 97/61
[2022-12-07] MEDS: DIVALPROEX 250MG TAB PO SCH (07:58)
[2022-12-07] MEDS: PALIPERIDONE 3MG ER TAB (INVEGA) PO SCH (07:59)
[2022-12-07] MEDS ORDERED: TRAZ-252 PO (12:06)
[2022-12-07] MEDS ORDERED: PALI1TAB2 PO (12:06)
[2022-12-07] MEDS ORDERED: DEPA250T32 PO ×2 (12:06)
== END 2022-12-07 14:52 | disposition home or self-care (01) | DRG 753 ==
LOC: M ED 09:49 → M ED INP 11-21 12:28 → M PSY 11-21 21:14
PROVIDERS: ADMIT Student in an Organized Health Care Education/Training Program; ATTEND Psychiatry & Neurology Psychiatry
DX: F31.9 Bipolar disorder, unspecified (principal); Z78.1 Physical restraint status; Z59.02 Unsheltered homelessness; Z79.899 Other long term (current) drug therapy; Z20.822 Contact with and (suspected) exposure to COVID-19